=== PATIENT | female | born 1995 | race Caucasian/White ===

== ENCOUNTER 2017-05-07 21:38 | Emergency (ER) | payer SELFPAY ==
[2017-05-07] MEDS ORDERED: SEROQUEL25 MG (21:55)
[2017-05-07] MEDS ORDERED: PROZAC (21:55)
== END 2017-05-07 22:41 | disposition home or self-care (01) ==
LOC: SED 21:38
DX: Z53.21 Procedure and treatment not carried out due to patient leaving prior to being seen by health care provider (principal)
CPT/HCPCS: J2310